=== PATIENT | female | born 1935 | race Caucasian/White ===

== ENCOUNTER 2017-09-28 10:05 | Observation (INO) | payer OTHER ==
[~2017-09-28] VITALS: Ht 165.1 cm; Wt 113.4 kg
--- NOTE | ~2017-09-28 | P ---
[facility] [place] [address] PROCEDURE REPORT Name: KRYSTLE MO Room #: 207-P [facility] M.RConor#: [id number] Admission: 09/28/17 Attend Phys: Mando Saenz MD Discharge: 09/29/17 Date of : 33 Report #: [id number] THIS REPORT FOR: //name// CC: Nini Saenz PREOPERATIVE DIAGNOSIS: Sick sinus syndrome. POSTOPERATIVE DIAGNOSIS: Sick sinus syndrome. HISTORY OF PRESENT ILLNESS: The patient is an 82-year-old female with a history of coronary artery disease, recently noted to be bradycardic. Her beta rosita was stopped, but salt washer still showed that she was having significant symptomatic bradycardia with a junctional escape rhythms. She is here for a dual chamber pacemaker implantation. ANESTHESIA: The patient underwent MAC anesthesia with no anesthesia related complications. PROCEDURE: The patient underwent informed consent. We discussed the details of the procedure including the risks, which include but not limited to bleeding, infection, vascular damage, cardiac perforation, pneumothorax. She understood these risks and is willing to proceed. The patient was brought to the EP Laboratory in a fasting and sedated state, prepped and draped in sterile fashion and received IV antibiotics prior to initiation of the procedure. A venogram was performed showing patency of the left axillary vein. Next, I injected lidocaine below the level of left clavicle. Incision was made, pocket was created over the prepectoral fascia. Access was obtained twice to left axillary vein using the extra thoracic approach with sheaths positioned using the modified Seldinger technique. Next, leads were positioned into the right ventricular apex and right atrial appendage, both with adequate pacing and sensing thresholds. Leads were sutured to the prepectoral fascia and the device was connected. Pocket was irrigated with vancomycin and then closed in 3 layers using 2-0 for the deep layer, 3-0 for the mid layer, 4-0 for the subcuticular layer. Surgical glue was placed at the outer skin layer. The patient awoke neurologically hemodynamically intact. No complications and no significant bleeding. The implanted pacemaker is a [employer] model #[id number], serial #[id number]. The atrial lead was a [employer] model #2088TC, 52 cm, serial #[id number], with a P-wave of 4.8 millivolts, pacing impedance of 510 ohms, pacing threshold 0.5 volts at 0.4 milliseconds. The RV lead was a [employer] model #2088TC, 58 cm, serial #[id number], with a R-wave of 8.1 millivolts, pacing impedance of 510 ohms and the pacing threshold 0.75 volts at 0.4 milliseconds. The pacemaker was programmed to the DDDR 60-130 mode. CONCLUSIONS: [facility] [address] [place] [address] PROCEDURE REPORT Name: KRYSTLE MO Room #: 207-P [facility] [place] M.RConor#: [id number] Admission: 09/28/17 Attend Phys: Mando Saenz MD Discharge: 09/29/17 Date of : 33 Report #: [id number] 1. Successful dual-chamber pacemaker implantation. 2. Satisfactory atrial and ventricular pacing and sensing thresholds. <ELECTRONICALLY SIGNED> By: Mando Saenz MD 10/09/17 1513 [id number] Mando Saenz MD /nt
[~2017-09-28 10:05] MED LIST: AMBIEN 5 MG TABL5 M1 PO; AMITIZA 24 MCG24 MC1 PO; ARICEPT 5 MG TAB5 MG PO; ASPIR 8181 MG PO; COREG CR10 MG PO; CYMBALTA60 MG PO; IMDUR 30 MG TAB30 M1 PO; JANUVIA100 MG PO; KLOR-CON 1010 MEQ PO; LASIX 40 MG TAB40 M2 PO; LEVOTHYROXIN0.175 MG PO; LIPITOR10 MG PO; LOTREL 10-40 M1 EACH PO; METFORMIN HCL500 MG PO; PLAVIX 75 MG TA75 M1 PO; PROBIOTIC1 EAC1 PO; RANEXA500 MG PO
[2017-09-28 10:47] VITALS: BP 169/64
[2017-09-28 10:57] LABS: ABSOLUTE NEUTROPHILS 3.7 thou/uL (1.4-8.2); BASOPHILS 1.2 % (0.0-2.0); EOSINOPHILS 4.1 % (0.0-3.0); HEMATOCRIT 36.5 % (37.0-47.0); HEMOGLOBIN 12.5 gm/dL (12.0-15.0); LYMPHOCYTES 17.4 % (24.0-44.0); MCH 30.1 pg (26.0-34.0); MCHC 34.1 g/dL (28.0-37.0); MCV 88.1 fL (80.0-100.0); MONOCYTES 6.1 % (1.0-8.0); PLATELET COUNT 171 thou/uL (150-400); POLYS 71.2 % (36.0-66.0); RBC 4.14 mil/uL (4.20-5.00); RDW 13.4 % (10.5-14.5); WBC 5.2 thou/uL (4.0-11.0)
[2017-09-28 11:06] LABS: CREATININE 1.1 mg/dL (0.6-1.0); POTASSIUM 3.9 mmol/L (3.5-5.1)
[2017-09-28] MEDS ORDERED: OXYCONTIN10 M1 PO (11:11)
[2017-09-28 11:12] LABS: ALBUMIN 3.5 g/dL (3.4-5.0); TOTAL BILIRUBIN 0.7 mg/dL (<0.1-1.0); TOTAL PROTEIN 7.6 g/dL (6.4-8.2)
[2017-09-28 11:13] LABS: APTT 31.7 Seconds (24.5-32.8); INR 1.1; PROTIME 10.8 Seconds (9.3-11.4)
[2017-09-28] MEDS ORDERED: SYNTHROID150 MCG PO (11:19)
[2017-09-28] MEDS ORDERED: PERCOCET 10-321 EACH PO (11:22)
[2017-09-28 20:45] VITALS: BP 175/70
[2017-09-29 00:22] VITALS: BP 157/64
[2017-09-29 04:55] VITALS: BP 162/66
[2017-09-29 07:59] VITALS: BP 155/69
[2017-09-29 09:46] VITALS: BP 155/69
== END 2017-09-29 11:23 | disposition home or self-care (01) ==
LOC: CATH 10:05 → 2N 19:46 → ENTRNSPT 09-29 11:13 → EDTRNSPTSTS 09-29 11:17 → 2N 09-29 11:23
PROVIDERS: Internal Medicine Cardiovascular Disease
DX: I49.5 Sick sinus syndrome (principal); I10 Essential (primary) hypertension; I25.118 Atherosclerotic heart disease of native coronary artery with other forms of angina pectoris; E78.5 Hyperlipidemia, unspecified; E11.9 Type 2 diabetes mellitus without complications; Z95.5 Presence of coronary angioplasty implant and graft; E03.9 Hypothyroidism, unspecified; G47.33 Obstructive sleep apnea (adult) (pediatric); Z99.89 Dependence on other enabling machines and devices; Z82.49 Family history of ischemic heart disease and other diseases of the circulatory system
CPT/HCPCS: 62110; 62900; 70005

== ENCOUNTER → 2020-01-23 | Outpatient (CLI) | payer OTHER ==
[~2020-01-23] MED LIST changes: +OXYCONTIN10 M1 PO; +PERCOCET 10-321 EACH PO; +SYNTHROID150 MCG PO
== END ==
LOC: SJCVC 10:08
PROVIDERS: ATTEND Internal Medicine Cardiovascular Disease
DX: Z45.018 Encounter for adjustment and management of other part of cardiac pacemaker (principal); I25.10 Atherosclerotic heart disease of native coronary artery without angina pectoris; I49.5 Sick sinus syndrome; E78.00 Pure hypercholesterolemia, unspecified; I10 Essential (primary) hypertension; I87.2 Venous insufficiency (chronic) (peripheral); I73.9 Peripheral vascular disease, unspecified; Z79.899 Other long term (current) drug therapy

== ENCOUNTER → 2020-10-23 | Outpatient (CLI) | payer OTHER | LOC: SJCVCIMAG 09:17 | PROVIDERS: ATTEND Internal Medicine Cardiovascular Disease | DX: I08.2 Rheumatic disorders of both aortic and tricuspid valves (principal); I27.20 Pulmonary hypertension, unspecified; E78.00 Pure hypercholesterolemia, unspecified; I49.5 Sick sinus syndrome; I87.2 Venous insufficiency (chronic) (peripheral); I10 Essential (primary) hypertension; I65.23 Occlusion and stenosis of bilateral carotid arteries; E11.9 Type 2 diabetes mellitus without complications; E78.5 Hyperlipidemia, unspecified; G47.33 Obstructive sleep apnea (adult) (pediatric); I25.10 Atherosclerotic heart disease of native coronary artery without angina pectoris; Z95.5 Presence of coronary angioplasty implant and graft; Z95.0 Presence of cardiac pacemaker; Z98.890 Other specified postprocedural states; Z88.2 Allergy status to sulfonamides; Z79.82 Long term (current) use of aspirin; Z79.84 Long term (current) use of oral hypoglycemic drugs; Z79.899 Other long term (current) drug therapy; Z82.49 Family history of ischemic heart disease and other diseases of the circulatory system ==